=== PATIENT | female | born 1965 | race American Indian/Alaskan Native ===

== ENCOUNTER 2017-03-17 10:17 | Emergency (ER) | payer SELFPAY ==
--- NOTE | 2017-03-17 10:46 | Emergency Department Report ---
Chief Complaint: Neuro Symptoms/Deficit Stated Complaint: LT SIDE FACIAL NUMBNESS /RAPID HEART BEAT Time Seen by Provider: 03/17/17 10:42 - HPI History of Present Illness: PT c/o L sided facial numbness that started yesterday. PT states she has a hx of chf and dm. PT states she ate watermelon for breakfast - ROS Review of Systems: +polydipsia -cp + palpitations (since November) - Exam Physical Exam: PT is alert and appropriate no focal weakness noted normal HR MSE screening note: Focused history and physical exam performed. Due to findings the following was ordered: EKG, CT, labs ED Disposition for MSE Condition: Stable
[2017-03-17 11:17] LABS: Basophils % (Auto) 0.6 % (0.0-1.8); Eosinophils % (Auto) 1.4 % (0.0-4.3); Hematocrit 42.7 % (30.3-42.9); Hemoglobin 14.3 gm/dl (10.1-14.3); Mean Corpuscular HGB Conc 34 % (30-34); Mean Corpuscular Hemoglobin 32 pg (28-32); Mean Corpuscular Volume 94 fl (79-97); Platelet Count 231 K/mm3 (140-440); Red Blood Count 4.53 M/mm3 (3.65-5.03); Red Cell Distribution Width 13.3 % (13.2-15.2); White Blood Count 4.1 K/mm3 (4.5-11.0)
[2017-03-17 11:27] LABS: INR 0.93 (0.87-1.13)
[2017-03-17 11:29] LABS: Partial Thromboplastin Time 31.4 Sec. (24.2-36.6)
[2017-03-17 11:32] LABS: Bilirubin,Urine NEG (Negative); Blood,Urine NEG (Negative); Ketones,Urine NEG (Negative); Leukocyte Esterase,Urine NEG (Negative); Nitrite,Urine NEG (Negative); Protein,Urine <15 mg/dL mg/dL (Negative); Urobilinogen,Urine < 2.0 mg/dL (<2.0)
[2017-03-17 11:38] LABS: Alanine Aminotransferase 13 units/L (7-56); Albumin 3.8 g/dL (3.9-5); Albumin/Globulin Ratio 0.9 %; Alkaline Phosphatase 147 units/L (35-129); Anion Gap 18 mmol/L; BUN/Creatinine Ratio 23.33; Blood Urea Nitrogen 14 mg/dL (7-17); Calcium 9.3 mg/dL (8.4-10.2); Carbon Dioxide 22 mmol/L (22-30); Chloride 99.8 mmol/L (98-107); Creatine Kinase 67 units/L (30-135); Creatine Kinase MB < 1.0 ng/mL (0.0-4.0); Glucose 159 mg/dL (65-100); Potassium 4.2 mmol/L (3.6-5.0); Sodium 136 mmol/L (137-145); Total Protein 7.9 g/dL (6.3-8.2)
--- NOTE | 2017-03-17 12:37 | Cat Scan Report ---
CT HEAD WITHOUT CONTRAST: HISTORY: Left-sided facial numbness. Serial contiguous axial images were obtained through the cranium. Intravenous contrast material was not administered. The ventricles are normal in size and appearance. There is no mass effect or midline shift. No areas of abnormally increased or decreased attenuation are seen. No mass lesion is seen. The mastoid air cells and visualized portions of the sinuses are normal. IMPRESSION: Cranial CT scan within normal limits.
[2017-03-17 13:11] VITALS: BP 112/71
--- NOTE | 2017-03-17 15:59 | Emergency Department Report ---
ED Neuro Deficit HPI - General Chief Complaint: Hyperglycemia Stated Complaint: LT SIDE FACIAL NUMBNESS /RAPID HEART BEAT Time Seen by Provider: 03/17/17 10:42 Source: patient Mode of arrival: Ambulatory Limitations: No Limitations - History of Present Illness Initial Comments: Patient stated that she woke up this morning with numbness and pain to the right face. Denied any weakness numbness or tingling sensation in the other part of the body. No chest pain no headache. Patient stated that her symptoms completely resolved. She is out of her blood pressure medicine and diabetic medicine. Location: right face History of same: No - Related Data Home Medications: Previous Rx's Medication Instructions Recorded Last Taken Type Lisinopril [Zestril TAB] 5 mg PO QDAY #30 tablet 03/17/17 Unknown Rx glipiZIDE [glipiZIDE XL] 2.5 mg PO DAILY #30 tab.er.24 03/17/17 Unknown Rx Allergies/Adverse Reactions: Allergies Allergy/AdvReac Type Severity Reaction Status Date / Time acetaminophen [From Percocet] AdvReac Hives Verified 03/17/17 10:51 oxycodone HCl [From Percocet] AdvReac Hives Verified 03/17/17 10:51 ED Review of Systems ROS: Stated complaint: LT SIDE FACIAL NUMBNESS /RAPID HEART BEAT Other details as noted in HPI Comment: All other systems reviewed and negative Constitutional: denies: chills, fever Respiratory: denies: cough, shortness of breath Cardiovascular: denies: chest pain Gastrointestinal: denies: abdominal pain, nausea, vomiting, diarrhea Skin: denies: lesions, change in color Neurological: numbness (gone now). denies: headache, weakness ED Past Medical Hx - Past Medical History Previous Medical History?: Yes Hx Hypertension: Yes Hx Congestive Heart Failure: Yes Hx Diabetes: Yes - Surgical History Past Surgical History?: Yes Additional Surgical History: hysterectomy - Social History Smoking Status: Never Smoker Substance Use Type: Alcohol - Medications Home Medications: Home Medications Medication Instructions Recorded Confirmed Last Taken Type Lisinopril [Zestril TAB] 5 mg PO QDAY #30 tablet 03/17/17 Unknown Rx glipiZIDE [glipiZIDE XL] 2.5 mg PO DAILY #30 tab.er.24 03/17/17 Unknown Rx ED Neuro Physical Exam - General Limitations: No Limitations General appearance: alert Suspected Stroke: No - Head Head exam: Present: atraumatic - Eye Eye exam: Present: normal appearance - ENT ENT exam: Present: normal exam - Neck Neck exam: Present: normal inspection - Respiratory Respiratory exam: Present: normal lung sounds bilaterally. Absent: respiratory distress, wheezes, chest wall tenderness - Cardiovascular Cardiovascular Exam: Present: regular rate, normal rhythm, normal heart sounds - GI/Abdominal GI/Abdominal exam: Present: soft. Absent: tenderness, guarding, rebound, mass, pulsatile mass - Extremities Exam Extremities exam: Present: normal inspection - Back Exam Back exam: Present: normal inspection - Neurological Exam Neurological exam: Present: alert, oriented X3, CN II-XII intact - NIHSS Assessment Interval: Baseline 1a. Level of Consciousness: alert 1b. LOC Questions: answers correctly 1c. LOC Commands: performs tasks correctly 2. Best Gaze: normal 3. Visual: no visual loss 4. Facial Palsy: normal symmetrical movement 5b. Motor Arm Right: no drift 5a. Motor Arm Left: no drift 6a. Motor Leg Left: no drift 6b. Motor Leg Right: no drift 7. Limb Ataxia: absent 8. Sensory: normal 9. Best Language: no aphasia 10. Dysarthria: normal 11. Extinction/Inattention: no abnormality Total Score: 0 Stroke Severity: No Stroke Symptoms - Skin Skin exam: Present: warm, intact ED Course Vital Signs 03/17/17 03/17/17 03/17/17 10:42 12:56 13:00 Temperature 98.4 F Pulse Rate 74 92 H 87 Respiratory 18 23 17 Rate Blood Pressure 145/97 112/71 Blood Pressure [Right] O2 Sat by Pulse 96 98 94 Oximetry 03/17/17 03/17/17 13:13 13:16 Temperature 98.4 F Pulse Rate 87 Respiratory 18 18 Rate Blood Pressure Blood Pressure 112/71 [Right] O2 Sat by Pulse 100 100 Oximetry - Reevaluation(s) Reevaluation #1: 03/17/17 15:59 Patient remained asymptomatic in the ER. - Lab Data Result diagrams: 03/17/17 10:59 03/17/17 10:59 Lab Results 03/17/17 03/17/17 03/17/17 Range/Units 10:44 10:59 10:59 WBC 4.1 L (4.5-11.0) K/mm3 RBC 4.53 (3.65-5.03) M/mm3 Hgb 14.3 (10.1-14.3) gm/dl Hct 42.7 (30.3-42.9) % MCV 94 (79-97) fl MCH 32 (28-32) pg MCHC 34 (30-34) % RDW 13.3 (13.2-15.2) % Plt Count 231 (140-440) K/mm3 Lymph % (Auto) 38.5 H (13.4-35.0) % Braxton % (Auto) 11.1 H (0.0-7.3) % Eos % (Auto) 1.4 (0.0-4.3) % Baso % (Auto) 0.6 (0.0-1.8) % Lymph # 1.6 (1.2-5.4) K/mm3 Braxton # 0.5 (0.0-0.8) K/mm3 Eos # 0.1 (0.0-0.4) K/mm3 Baso # 0.0 (0.0-0.1) K/mm3 Seg Neutrophils % 48.4 (40.0-70.0) % Seg Neutrophils # 2.0 (1.8-7.7) K/mm3 PT 12.9 (12.2-14.9) Sec. INR 0.93 (0.87-1.13) APTT 31.4 (24.2-36.6) Sec. Sodium (137-145) mmol/L Potassium (3.6-5.0) mmol/L Chloride (98-107) mmol/L Carbon Dioxide (22-30) mmol/L Anion Gap mmol/L BUN (7-17) mg/dL Creatinine (0.7-1.2) mg/dL Estimated GFR ml/min BUN/Creatinine Ratio % Glucose (65-100) mg/dL POC Glucose 180 H (70-105) Calcium (8.4-10.2) mg/dL Total Bilirubin (0.1-1.2) mg/dL AST (5-40) units/L ALT (7-56) units/L Alkaline Phosphatase (35-129) units/L Total Creatine Kinase (30-135) units/L CK-MB (CK-2) (0.0-4.0) ng/mL CK-MB (CK-2) Rel Index (0-4) Troponin T (0.00-0.029) ng/mL Total Protein (6.3-8.2) g/dL Albumin (3.9-5) g/dL Albumin/Globulin Ratio % Urine Color (Yellow) Urine Turbidity (Clear) Urine pH (5.0-7.0) Ur Specific Peck (1.003-1.030) Urine Protein (Negative) mg/dL Urine Glucose (UA) (Negative) mg/dL Urine Ketones (Negative) mg/dL Urine Blood (Negative) Urine Nitrite (Negative) Urine Bilirubin (Negative) Urine Urobilinogen (<2.0) mg/dL Ur Leukocyte Esterase (Negative) Urine WBC (Auto) (0.0-6.0) /HPF Urine RBC (Auto) (0.0-6.0) /HPF U Epithel Cells (Auto) (0-13.0) /HPF 03/17/17 03/17/17 03/17/17 Range/Units 10:59 11:02 13:42 WBC (4.5-11.0) K/mm3 RBC (3.65-5.03) M/mm3 Hgb (10.1-14.3) gm/dl Hct (30.3-42.9) % MCV (79-97) fl MCH (28-32) pg MCHC (30-34) % RDW (13.2-15.2) % Plt Count (140-440) K/mm3 Lymph % (Auto) (13.4-35.0) % Braxton % (Auto) (0.0-7.3) % Eos % (Auto) (0.0-4.3) % Baso % (Auto) (0.0-1.8) % Lymph # (1.2-5.4) K/mm3 Braxton # (0.0-0.8) K/mm3 Eos # (0.0-0.4) K/mm3 Baso # (0.0-0.1) K/mm3 Seg Neutrophils % (40.0-70.0) % Seg Neutrophils # (1.8-7.7) K/mm3 PT (12.2-14.9) Sec. INR (0.87-1.13) APTT (24.2-36.6) Sec. Sodium 136 L (137-145) mmol/L Potassium 4.2 (3.6-5.0) mmol/L Chloride 99.8 (98-107) mmol/L Carbon Dioxide 22 (22-30) mmol/L Anion Gap 18 mmol/L BUN 14 (7-17) mg/dL Creatinine 0.6 L (0.7-1.2) mg/dL Estimated GFR > 60 ml/min BUN/Creatinine Ratio 23.33 % Glucose 159 H (65-100) mg/dL POC Glucose 286 H (70-105) Calcium 9.3 (8.4-10.2) mg/dL Total Bilirubin 0.40 (0.1-1.2) mg/dL AST 12 (5-40) units/L ALT 13 (7-56) units/L Alkaline Phosphatase 147 H (35-129) units/L Total Creatine Kinase 67 (30-135) units/L CK-MB (CK-2) < 1.0 (0.0-4.0) ng/mL CK-MB (CK-2) Rel Index 1.4 (0-4) Troponin T < 0.010 (0.00-0.029) ng/mL Total Protein 7.9 (6.3-8.2) g/dL Albumin 3.8 L (3.9-5) g/dL Albumin/Globulin Ratio 0.9 % Urine Color Straw (Yellow) Urine Turbidity Clear (Clear) Urine pH 8.0 H (5.0-7.0) Ur Specific Peck 1.011 (1.003-1.030) Urine Protein <15 mg/dl (Negative) mg/dL Urine Glucose (UA) Neg (Negative) mg/dL Urine Ketones Neg (Negative) mg/dL Urine Blood Neg (Negative) Urine Nitrite Neg (Negative) Urine Bilirubin Neg (Negative) Urine Urobilinogen < 2.0 (<2.0) mg/dL Ur Leukocyte Esterase Neg (Negative) Urine WBC (Auto) 1.0 (0.0-6.0) /HPF Urine RBC (Auto) 1.0 (0.0-6.0) /HPF U Epithel Cells (Auto) 5.0 (0-13.0) /HPF Critical care attestation.: If time is entered above; I have spent that time in minutes in the direct care of this critically ill patient, excluding procedure time. ED Disposition Clinical Impression: Numbness and tingling, Hyperglycemia due to type 2 diabetes mellitus Disposition: DC-01 TO HOME OR SELFCARE Is pt being admited?: No Condition: Stable Instructions: Diabetes Mellitus Type 2 in Adults (ED) Referrals: PRIMARY CARE,MD [Primary Care Provider] - 3-5 Days
== END 2017-03-17 16:23 | disposition home or self-care (01) ==
LOC: ED 10:17
DX: E11.65 Type 2 diabetes mellitus with hyperglycemia (principal); R20.0 Anesthesia of skin; I10 Essential (primary) hypertension; I50.9 Heart failure, unspecified; Z88.8 Allergy status to other drugs, medicaments and biological substances
CPT/HCPCS: 36415; 70450; 80053; 81001; 82550; 82553; 82962; 84484; 85025; 85610; 85730; 93005; 93010

== ENCOUNTER 2017-05-13 22:05 | Emergency (ER) | payer BC ==
--- NOTE | 2017-05-14 07:05 | XRay Report ---
FINAL REPORT EXAM: XR KNEE BILAT 1-2V HISTORY: knee swelling COMPARISONS: None. FINDINGS: AP and lateral views both knees Alignment is anatomic, joint spaces are preserved, and subchondral surfaces are smooth. No fracture or effusion. IMPRESSION: Unremarkable knee radiographs.
[2017-05-14 08:25] VITALS: BP 128/80
--- NOTE | 2017-05-14 08:28 | Emergency Department Report ---
ED Extremity Problem HPI - General Chief complaint: Extremity Injury, Lower Stated complaint: BOTH KNEE PAIN Source: patient Mode of arrival: Ambulatory Limitations: No Limitations - History of Present Illness Initial comments: 29 y/o F with a pmhx of DM, CHF, HTN, and asthma presents with bilateral knee pain and swelling for the past 1 year. Pt states that the pain increased more since yesterday as she states that she walked more than usual up and down stairs. 8/10 in severity. Pt states that she is is still able to bare weight and ROM she states is full. Pt admits to mild swelling and redness at the site. Pt states that she has been taking advil and lidiocaine cream with mild relief of the pain. Pt denies any known trauma to the knees. No reported fever , chills, chest pain, SOB, nausea, vomiting at this time. Pt has an allergy to percocet. -: Gradual (ongoing for the past 1 year, that has increased over the past day from extensive walking) Location: bilateral lower extremity -: Yes myalgia, No fever, No associated dyspnea, No associated chest pain Radiation: none Severity scale (0 -10): 8 Quality: burning, aching Consistency: constant Improves with: rest Worsens with: walking Associated Symptoms: myalgias. denies: chest pain, shortness of breath, fever - Related Data Previous Rx's Medication Instructions Recorded Last Taken Type Lisinopril [Zestril TAB] 5 mg PO QDAY #30 tablet 03/17/17 Unknown Rx glipiZIDE [glipiZIDE XL] 2.5 mg PO DAILY #30 tab.er.24 03/17/17 Unknown Rx Ibuprofen [Motrin 400 MG tab] 400 mg PO Q8H PRN #15 tablet 05/14/17 Unknown Rx Allergies Allergy/AdvReac Type Severity Reaction Status Date / Time acetaminophen [From Percocet] AdvReac Hives Verified 05/13/17 22:08 oxycodone HCl [From Percocet] AdvReac Hives Verified 05/13/17 22:08 ED Review of Systems ROS: Stated complaint: BOTH KNEE PAIN Other details as noted in HPI Constitutional: denies: chills, fever Eyes: denies: eye pain, eye discharge, vision change ENT: denies: ear pain, throat pain Respiratory: denies: cough, shortness of breath, wheezing Cardiovascular: denies: chest pain, palpitations Musculoskeletal: joint swelling, myalgia, other (redness, swelling, and pain of b/l LE) Skin: other (redness) Neurological: denies: headache, weakness, paresthesias Psychiatric: denies: anxiety, depression ED Past Medical Hx - Past Medical History Hx Hypertension: Yes Hx Congestive Heart Failure: Yes Hx Diabetes: Yes - Surgical History Additional Surgical History: hysterectomy - Social History Smoking Status: Never Smoker Substance Use Type: None - Medications Home Medications: Home Medications Medication Instructions Recorded Confirmed Last Taken Type Lisinopril [Zestril TAB] 5 mg PO QDAY #30 tablet 03/17/17 Unknown Rx glipiZIDE [glipiZIDE XL] 2.5 mg PO DAILY #30 tab.er.24 03/17/17 Unknown Rx Ibuprofen [Motrin 400 MG tab] 400 mg PO Q8H PRN #15 tablet 05/14/17 Unknown Rx ED Physical Exam - General Limitations: No Limitations General appearance: alert, in no apparent distress - Head Head exam: Present: atraumatic, normocephalic - Eye Eye exam: Present: normal appearance, PERRL, EOMI - ENT ENT exam: Present: mucous membranes moist - Neck Neck exam: Present: normal inspection - Respiratory Respiratory exam: Present: normal lung sounds bilaterally. Absent: respiratory distress - Cardiovascular Cardiovascular Exam: Present: regular rate, normal rhythm. Absent: systolic murmur, diastolic murmur, rubs, gallop - Extremities Exam Extremities exam: Present: full ROM, tenderness (noted just superior to the patella), joint swelling (pt is able to bear weight and ROM of the joint is full ), other - Expanded Lower Extremity Exam Left Knee exam: Present: full ROM, tenderness (noted just superior to the patella), erythema, full knee extension. Absent: deformity, effusion Lower Leg exam: Present: normal inspection, full ROM Ankle exam: Present: normal inspection, full ROM Foot/Toe exam: Present: normal inspection, full ROM Neuro vascular tendon exam: Present: no vascular compromise. Absent: foot drop Gait: Positive: observed and normal Right Hip exam: Present: normal inspection, full ROM Upper Leg exam: Present: normal inspection, full ROM Knee exam: Present: tenderness (not at the superior aspect of the patella), swelling, erythema, full knee extension. Absent: deformity, effusion Lower Leg exam: Present: normal inspection, full ROM Ankle exam: Present: normal inspection, full ROM Foot/Toe exam: Present: normal inspection, full ROM Neuro vascular tendon exam: Present: no vascular compromise Gait: Positive: observed and normal - Back Exam Back exam: Present: normal inspection - Neurological Exam Neurological exam: Present: alert, oriented X3, normal gait - Psychiatric Psychiatric exam: Present: normal affect, normal mood - Skin Skin exam: Present: other (mild warmth noted at the site no redness) ED Course Vital Signs 05/13/17 05/14/17 05/14/17 22:07 02:35 08:23 Temperature 98.1 F 98.0 F Pulse Rate 112 H 92 H 92 H Respiratory 20 20 18 Rate Blood Pressure 135/78 127/87 Blood Pressure 128/80 [Right] O2 Sat by Pulse 96 98 99 Oximetry ED Medical Decision Making - Radiology Data Radiology results: image reviewed Xray of bilateral knees was unremarkable with no evidence of fracture or effusion. - Medical Decision Making I Spoke with Dr. Lopes regarding this case. Pt has had on and off bilateral knee pain for the past 1 year. She states that yesterday she did more walking then usual and aggrevated both of her knees. Pt was able to bare weight on examination-- no limpingor changes in gait noted, ROM was full, and the patient' s bilateral knee xray was unremarkable. I have provided pt with Ibuprofen 400 mg every 8 hours and recommended Glucogan chondriton. I have provided pt with orthopedic and PCP referrals. She also is requesting referrals to Cardio and Pulm at this time as she states she is looking for new specialists in the area at this time. Pt was in such a hurry to be discharged as she stated that she needed to make an interview, therefore, no pain medications were given in the ED. Pt was discharged in stable condition, vitals were stable, pt was alert and oriented, and the patient ambulated on her own at discharge. Critical care attestation.: If time is entered above; I have spent that time in minutes in the direct care of this critically ill patient, excluding procedure time. ED Disposition Clinical Impression: Knee pain, chronic Qualifiers: Laterality: bilateral Qualified Code(s): M25.561 - Pain in right knee Disposition: - TO HOME OR SELFCARE Is pt being admited?: No Does the pt Need Aspirin: No Condition: Stable Instructions: Ibuprofen (By mouth), Knee Pain (ED) Additional Instructions: Please purchase glucosamine chondroitin over the counter and take in addition to the ibuprofen 400 mg. Please stay off of your knees for the next 2-3 days. Elevated and ice the area. Please follow-up with PCP within 3-5 days and orthopedics in the next few days. Return to the ER immediately with any continued or worsening symptoms such as: fever, chills, increased redness and warmth. Prescriptions: Ibuprofen [Motrin 400 MG tab] 400 mg PO Q8H PRN #15 tablet PRN Reason: pain Referrals: [facility] [Outside] - 3-5 Days PIERRE ROJAS MD [Staff Physician] - 3-5 Days TIFFANIE GROSS MD [Staff Physician] - 3-5 Days [facility], [Primary Care Provider] - 3-5 Days SIGRID PERALTA MD [Staff Physician] - 3-5 Days Forms: Work/School Release Form(ED)
== END 2017-05-14 08:34 | disposition home or self-care (01) ==
LOC: ED 22:05
DX: M25.561 Pain in right knee (principal); M25.562 Pain in left knee; I10 Essential (primary) hypertension; I50.9 Heart failure, unspecified; E11.9 Type 2 diabetes mellitus without complications; Z88.8 Allergy status to other drugs, medicaments and biological substances; Z88.6 Allergy status to analgesic agent
CPT/HCPCS: 99283

== ENCOUNTER 2017-06-27 04:08 | Emergency (ER) | payer SELFPAY ==
[2017-06-27 04:21] VITALS: BP 137/89
[2017-06-27] MEDS ORDERED: DECADRON IM ONE (09:02)
--- NOTE | 2017-06-27 09:03 | Emergency Department Report ---
Minor Respiratory - HPI Chief Complaint: Earache Stated Complaint: EARACHE Time Seen by Provider: 06/27/17 08:50 Duration: Today Pain Location: Ear Severity: moderate Minor Respiratory: Yes Rhinorrhea, Yes Able to Tolerate Fluids, Yes Ear Pain, Yes Cough, Yes Sick Contacts, No Sore Throat, No Hemoptysis, No Chest Pain, No Shortness of Breath, No Fever Other History: Pt reports sinus congestion, sinus pain x 1 week. No fever. This AM had R ear pain. Hx DM, glc well controlled. ED Review of Systems ROS: Stated complaint: EARACHE Other details as noted in HPI Comment: All other systems reviewed and negative Constitutional: denies: chills, fever Eyes: denies: eye pain, eye discharge, vision change ENT: ear pain, congestion. denies: throat pain Respiratory: cough. denies: shortness of breath, wheezing Cardiovascular: denies: chest pain, palpitations Endocrine: no symptoms reported Gastrointestinal: denies: abdominal pain, nausea, diarrhea Genitourinary: denies: urgency, dysuria, discharge Musculoskeletal: denies: back pain, joint swelling, arthralgia Skin: denies: rash, lesions Neurological: denies: headache, weakness, paresthesias Psychiatric: denies: anxiety, depression Hematological/Lymphatic: denies: easy bleeding, easy bruising ED Past Medical Hx - Past Medical History Previous Medical History?: Yes Hx Hypertension: Yes Hx Congestive Heart Failure: Yes Hx Diabetes: Yes - Surgical History Past Surgical History?: Yes Additional Surgical History: hysterectomy - Social History Smoking Status: Never Smoker Substance Use Type: None - Medications Home Medications: Home Medications Medication Instructions Recorded Confirmed Last Taken Type Lisinopril [Zestril TAB] 5 mg PO QDAY #30 tablet 03/17/17 Unknown Rx glipiZIDE [glipiZIDE XL] 2.5 mg PO DAILY #30 tab.er.24 03/17/17 Unknown Rx Ibuprofen [Motrin 400 MG tab] 400 mg PO Q8H PRN #15 tablet 05/14/17 Unknown Rx Amoxicillin/Potassium Clav 1 each PO BID #20 tablet 06/27/17 Unknown Rx [Augmentin 875-125 Tablet] Fluticasone [Flonase] 2 spray NS QDAY #1 bottle 06/27/17 Unknown Rx Minor Respiratory Exam - Exam General: Vital signs noted. No distress. Alert and acting appropriately. HEENT: Yes Moist Mucous Membranes, Yes Frontal Tenderness, Yes Maxillary Tenderness, No Pharyngeal Erythema, No Pharyngeal Exudates, No Rhinorrhea, No Conjuctival Injection Ear: Right TM Bulge, Right TM Erythema, Neither EAC Pain, Neither EAC Discharge Neck: Yes Supple, No Adenopathy Lungs: Yes Good Air Exchange, Yes Cough (slight), No Wheezes, No Ronchi, No Stridor, No Labored Respirations, No Retractions, No Use of Accessory Muscles, No Other Abnormal Lung Sounds Heart: Yes Regular, No Murmur Abdomen: Yes Normal Bowel Sounds, No Tenderness, No Peritoneal Signs Skin: No Rash, No Edema Neurologic: Alert and oriented, no deficits. Musculoskeletal: Unremarkable. ED Course Vital Signs 06/27/17 04:18 Temperature 99.4 F Pulse Rate 107 H Blood Pressure 137/89 O2 Sat by Pulse 99 Oximetry - Reevaluation(s) Reevaluation #1: 06/27/17 09:00 NAD, stable for d/c. ED Medical Decision Making - Medical Decision Making Pt with R otitis media and acute sinusitis >7 day duration. Will give IM Decadron x 1 and abx. Follow with PCP. Monitor glc. - Differential Diagnosis sinusitis, otitis media, URI Critical care attestation.: If time is entered above; I have spent that time in minutes in the direct care of this critically ill patient, excluding procedure time. ED Disposition Clinical Impression: Acute sinusitis Qualifiers: Sinusitis location: unspecified location Recurrence: not specified as recurrent Qualified Code(s): J01.90 - Acute sinusitis, unspecified Suppurative otitis media Qualifiers: Chronicity: acute Laterality: right Recurrence: not specified as recurrent Spontaneous tympanic membrane rupture: without spontaneous rupture Qualified Code(s): H66.001 - Acute suppurative otitis media without spontaneous rupture of ear drum, right ear Disposition: - TO HOME OR SELFCARE Is pt being admited?: No Condition: Good Instructions: Otitis Media (ED), Sinusitis (ED) Prescriptions: Amoxicillin/Potassium Clav [Augmentin 875-125 Tablet] 1 each PO BID #20 tablet Fluticasone [Flonase] 2 spray NS QDAY #1 bottle Referrals: PRIMARY CARE, [Primary Care Provider] - 3-5 Days Time of Disposition: 09:03
[2017-06-27] MEDS ORDERED: MOTRIN PO ONE (09:05)
== END 2017-06-27 10:03 | disposition home or self-care (01) ==
LOC: ED 04:08
DX: J01.90 Acute sinusitis, unspecified (principal); H66.41 Suppurative otitis media, unspecified, right ear; I10 Essential (primary) hypertension; I50.9 Heart failure, unspecified; E11.9 Type 2 diabetes mellitus without complications; Z90.710 Acquired absence of both cervix and uterus
CPT/HCPCS: 96372; 99282; J1100

== ENCOUNTER 2017-12-07 10:06 | Emergency (ER) | payer OTHER ==
[2017-12-07 10:51] VITALS: BP 166/103
[2017-12-07] MEDS ORDERED: MOTRIN PO ONE (13:39)
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
--- NOTE | 2017-12-07 14:11 | XRay Report ---
LEFT HAND, 3 views: History: Injury, pain The bony architecture is intact. Bony alignment is normal. No soft tissue abnormalities are seen. The joint spaces appear preserved. IMPRESSION: Left hand within normal limits.
--- NOTE | 2017-12-07 14:34 | Cat Scan Report ---
FINAL REPORT PROCEDURE: CT HEAD/BRAIN WO CON TECHNIQUE: Computerized tomography of the head was performed without contrast material. HISTORY: closed head injury. Pain. COMPARISON: Prior CT scan of the brain 03/17/2017 FINDINGS: Brain: Brain density appears normal. No evidence of intracranial hemorrhage. No parenchymal hemorrhage, mass lesions or mass effect are seen. No abnormal extraxial fluid collects or masses are seen. Ventricles: Ventricles are normal size and are midline. Bone Windows: No evidence of skull fracture. Paranasal sinuses: Clear Mastoid air cells: Clear IMPRESSION: Negative examination
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
--- NOTE | 2017-12-07 15:09 | Cat Scan Report ---
FINAL REPORT PROCEDURE: CT FACIAL BONES WO CON TECHNIQUE: Computerized tomography of the facial bones and soft tissues with axial and coronal sections performed from the cranial aspect of the frontal sinuses to the caudal portion of the mandible without contrast material. HISTORY: right facial swelling secondary to fall. Pain. COMPARISON: No prior studies are available for comparison. FINDINGS: There is subtle irregularity of the nasal bone just to the right of midline seen on image 83 series 2 axial image. Correlation with physical exam recommended to exclude a nondisplaced fracture. No other evidence of fracture. The orbits, zygomas and zygomatic arches as well as the mireles of the paranasal sinuses and mandible are intact. Nodular density is seen inferior anterior aspect left maxillary sinus measuring 1.7 centimeters suggesting a mucous retention cyst or possibly a polyp. Paranasal sinuses otherwise are clear. There is subcutaneous edema visualized lateral to the right zygoma. No radiopaque foreign bodies are identified. IMPRESSION: Subcutaneous edema visualize lateral to the right zygoma. Minimal cortical irregularity of the nasal bone as described. Recommend correlation with physical exam to exclude a nondisplaced fracture. No other evidence of facial fracture. Minimal paranasal sinus disease as described.
== END 2017-12-07 15:35 | disposition home or self-care (01) ==
LOC: ED 10:06
DX: M79.642 Pain in left hand (principal); E11.9 Type 2 diabetes mellitus without complications; I10 Essential (primary) hypertension; Z90.710 Acquired absence of both cervix and uterus; Z88.6 Allergy status to analgesic agent; W51.XXXA Accidental striking against or bumped into by another person, initial encounter; Y93.89 Activity, other specified; Y92.89 Other specified places as the place of occurrence of the external cause; Y99.8 Other external cause status
CPT/HCPCS: 70450; 70486; 99284

== ENCOUNTER 2018-02-07 22:21 | Emergency (ER) | payer SELFPAY ==
[2018-02-07] MEDS ORDERED: ASPIRIN PO ONE (22:31)
[2018-02-08 00:01] LABS: BUN/Creatinine Ratio 18; Blood Urea Nitrogen 14 mg/dL (7-17); Calcium 8.8 mg/dL (8.4-10.2); Hemolysis Index 18
[2018-02-08 00:23] LABS: Basophils % (Auto) 0.2 % (0.0-1.8); Eosinophils # (Auto) 0.1 K/mm3 (0.0-0.4); Eosinophils % (Auto) 1.3 % (0.0-4.3); Hematocrit 41.2 % (30.3-42.9); Hemoglobin 13.5 gm/dl (10.1-14.3); Lymphocytes # (Auto) 2.5 K/mm3 (1.2-5.4); Lymphocytes % (Auto) 43.7 % (13.4-35.0); Mean Corpuscular HGB Conc 33 % (30-34); Mean Corpuscular Hemoglobin 31 pg (28-32); Mean Corpuscular Volume 95 fl (79-97); Monocytes # (Auto) 0.5 K/mm3 (0.0-0.8); Monocytes % (Auto) 9.3 % (0.0-7.3); Platelet Count 245 K/mm3 (140-440); Red Blood Count 4.33 M/mm3 (3.65-5.03); Red Cell Distribution Width 13.5 % (13.2-15.2)
[2018-02-08] MEDS ORDERED: MOTRIN PO ONE (00:35)
--- NOTE | 2018-02-08 00:57 | Emergency Department Report ---
ED Chest Pain HPI - General Chief Complaint: Chest Pain Stated Complaint: CHEST PAIN Time Seen by Provider: 02/08/18 00:20 Source: patient Mode of arrival: Ambulatory Limitations: No Limitations - History of Present Illness Initial Comments: ms Downs is a 52 year-old woman who presents with left sided chest pain. Noticed it in [facility] this morning around 1030am. Left upper chest. Feels sharp. Hurts to cough. Hurts to push on her chest. has been coughign recently due to asthma. No fever. Not coughing anything up. Coughs mostly at night. No radiation of chest pain. No back pain. Not exertional. No orthopnea MD Complaint: chest pain Onset/Timin,030 (am) -: This morning Onset: during rest Pain Location: left chest Severity: mild Severity scale (0 -10): 5 Quality: sharp Consistency: intermittent, now resolved Improves With: nothing Worsens With: other (coughing) Other Symptoms: cough Treatments Prior to Arrival: none - Related Data Previous Rx's Medication Instructions Recorded Last Taken Type Lisinopril [Zestril TAB] 5 mg PO QDAY #30 tablet 03/17/17 Unknown Rx glipiZIDE [glipiZIDE XL] 2.5 mg PO DAILY #30 tab.er.24 03/17/17 Unknown Rx Ibuprofen [Motrin 400 MG tab] 400 mg PO Q8H PRN #15 tablet 05/14/17 Unknown Rx Amoxicillin/Potassium Clav 1 each PO BID #20 tablet 06/27/17 Unknown Rx [Augmentin 875-125 Tablet] Fluticasone [Flonase] 2 spray NS QDAY #1 bottle 06/27/17 Unknown Rx traMADol [Ultram] 50 mg PO Q6HR PRN #12 tablet 12/07/17 Unknown Rx Allergies Allergy/AdvReac Type Severity Reaction Status Date / Time acetaminophen [From Percocet] AdvReac Hives Verified 05/13/17 22:08 oxycodone HCl [From Percocet] AdvReac Hives Verified 05/13/17 22:08 Heart Score - HEART Score History: Slightly suspicious EKG: Normal Age: 45-65 Risk factors: 1-2 risk factors Troponin: < normal limit HEART Score: 2 - Critical Actions Critical Actions: 0-3 pts:0.9-1.7%risk of adverse cardiac event.Candidate for discharge ED Review of Systems ROS: Stated complaint: CHEST PAIN Other details as noted in HPI Comment: All other systems reviewed and negative ED Past Medical Hx - Past Medical History Previous Medical History?: Yes Hx Hypertension: Yes Hx Congestive Heart Failure: Yes Hx Diabetes: Yes - Surgical History Past Surgical History?: Yes Additional Surgical History: hysterectomy - Social History Smoking Status: Never Smoker Substance Use Type: None - Medications Home Medications: Home Medications Medication Instructions Recorded Confirmed Last Taken Type Lisinopril [Zestril TAB] 5 mg PO QDAY #30 tablet 03/17/17 Unknown Rx glipiZIDE [glipiZIDE XL] 2.5 mg PO DAILY #30 tab.er.24 03/17/17 Unknown Rx Ibuprofen [Motrin 400 MG tab] 400 mg PO Q8H PRN #15 tablet 05/14/17 Unknown Rx Amoxicillin/Potassium Clav 1 each PO BID #20 tablet 06/27/17 Unknown Rx [Augmentin 875-125 Tablet] Fluticasone [Flonase] 2 spray NS QDAY #1 bottle 06/27/17 Unknown Rx traMADol [Ultram] 50 mg PO Q6HR PRN #12 tablet 12/07/17 Unknown Rx ED Physical Exam - General Limitations: No Limitations General appearance: alert, in no apparent distress - Head Head exam: Present: atraumatic, normocephalic - Eye Eye exam: Present: normal appearance, PERRL, EOMI - ENT ENT exam: Present: normal exam, mucous membranes moist - Neck Neck exam: Present: normal inspection. Absent: tenderness - Respiratory Respiratory exam: Present: normal lung sounds bilaterally, chest wall tenderness , other (TTP over 2/3rd ribs left side. no bruising, no swelling, no rash). Absent: respiratory distress, wheezes, rales - Cardiovascular Cardiovascular Exam: Present: regular rate, normal rhythm. Absent: systolic murmur, diastolic murmur, rubs, gallop - GI/Abdominal GI/Abdominal exam: Present: soft. Absent: distended, tenderness - Extremities Exam Extremities exam: Present: normal inspection. Absent: tenderness - Back Exam Back exam: Present: normal inspection - Neurological Exam Neurological exam: Present: alert, oriented X3 - Psychiatric Psychiatric exam: Present: normal affect, normal mood - Skin Skin exam: Present: warm, dry, intact, normal color. Absent: rash ED Course Vital Signs 02/07/18 02/07/18 02/08/18 22:27 23:30 00:35 Temperature 98.1 F 98.1 F Pulse Rate 73 79 Respiratory 16 20 20 Rate Blood Pressure 163/85 Blood Pressure 143/86 [Left] O2 Sat by Pulse 98 98 98 Oximetry 02/08/18 02/08/18 01:12 02:02 Temperature Pulse Rate 63 Respiratory 20 20 Rate Blood Pressure Blood Pressure 154/89 [Left] O2 Sat by Pulse 96 Oximetry ED Medical Decision Making - Lab Data Result diagrams: 02/07/18 22:40 02/07/18 22:40 Lab Results 02/07/18 02/07/18 02/07/18 Range/Units 22:40 22:40 22:40 WBC 5.8 (4.5-11.0) K/mm3 RBC 4.33 (3.65-5.03) M/mm3 Hgb 13.5 (10.1-14.3) gm/dl Hct 41.2 (30.3-42.9) % MCV 95 (79-97) fl MCH 31 (28-32) pg MCHC 33 (30-34) % RDW 13.5 (13.2-15.2) % Plt Count 245 (140-440) K/mm3 Lymph % (Auto) 43.7 H (13.4-35.0) % Terry % (Auto) 9.3 H (0.0-7.3) % Eos % (Auto) 1.3 (0.0-4.3) % Baso % (Auto) 0.2 (0.0-1.8) % Lymph # 2.5 (1.2-5.4) K/mm3 Terry # 0.5 (0.0-0.8) K/mm3 Eos # 0.1 (0.0-0.4) K/mm3 Baso # 0.0 (0.0-0.1) K/mm3 Seg Neutrophils % 45.5 (40.0-70.0) % Seg Neutrophils # 2.6 (1.8-7.7) K/mm3 Sodium 143 (137-145) mmol/L Potassium 4.0 (3.6-5.0) mmol/L Chloride 101.8 (98-107) mmol/L Carbon Dioxide 29 (22-30) mmol/L Anion Gap 16 mmol/L BUN 14 (7-17) mg/dL Creatinine 0.8 (0.7-1.2) mg/dL Estimated GFR > 60 ml/min BUN/Creatinine Ratio 18 % Glucose 227 H (65-100) mg/dL Calcium 8.8 (8.4-10.2) mg/dL Troponin T < 0.010 (0.00-0.029) ng/mL NT-Pro-B Natriuret Pep 194.4 (0-900) pg/mL - EKG Data 2235: HR 86, sinus, normal axis, intervals wnl, no ST changes concerning for acute ischemia - Radiology Data Radiology results: report reviewed IMPRESSION: Normal examination. - Medical Decision Making ms downs is a 52 year-old woman with left chest wall pain. hx of CHF, asthma. Pain with coughing, touching her left upper chest. VSS on room air, no peripheral edema, soft abdomen, left chest wall tenderness without bruising, swelling, crepitus. Suspect this is MSK pain vs PNA vs PTX vs ACS. CXR clear. Trop neg. EKG non-ischemic, WBC normal. Lungs remain clear to exam. Some improvement in pain with NSAIDs. more than 6 hours since onset of pain, able to clear with one troponin. Suspect MSK pain. Given care instructions, return precautions and plan to establish PCP in order to provide care for her multiple chronic medical problems. Critical care attestation.: If time is entered above; I have spent that time in minutes in the direct care of this critically ill patient, excluding procedure time. ED Disposition Clinical Impression: Chest wall pain Disposition: DC-01 TO HOME OR SELFCARE Is pt being admited?: No Does the pt Need Aspirin: No Condition: Stable Instructions: Chest Pain (ED), Costochondritis (ED) Referrals: PRIMARY CARE, [Primary Care Provider] - 3-5 Days Forms: Work/School Release Form(ED)
--- NOTE | 2018-02-08 01:58 | XRay Report ---
FINAL REPORT PROCEDURE: XR CHEST ROUTINE 2V TECHNIQUE: PA and lateral chest radiographs were obtained. CPT 81156 HISTORY: chest pain COMPARISON: No prior studies are available for comparison. FINDINGS: Heart: Normal. Mediastinum/Vessels: Normal. Lungs/Pleural space: Normal. Bony thorax: No acute osseous abnormality. Other: IMPRESSION: Normal examination.
[2018-02-08 02:03] VITALS: BP 154/89
== END 2018-02-08 02:35 | disposition home or self-care (01) ==
LOC: ED 22:21
DX: R07.89 Other chest pain (principal); R05 Cough; I11.0 Hypertensive heart disease with heart failure; I50.9 Heart failure, unspecified; E11.9 Type 2 diabetes mellitus without complications; Z90.710 Acquired absence of both cervix and uterus; Z79.84 Long term (current) use of oral hypoglycemic drugs; Z88.6 Allergy status to analgesic agent; Z88.5 Allergy status to narcotic agent
CPT/HCPCS: 36415; 71046; 80048; 83880; 84484; 85025; 93005; 93010

== ENCOUNTER 2020-04-23 17:30 | Emergency (ER) | payer OTHER ==
--- NOTE | 2020-04-23 17:32 | Emergency Department Report ---
Blank Doc - Documentation Documentation: 55-year-old female that presents with generlzied weakness, fatigue, and body a ches. Stated blood sugar is above 600s at home. This initial assessment/diagnostic orders/clinical plan/treatment(s) is/are subject to change based on patient's health status, clinical progression and re- assessment by fellow clinical providers in the ED. Further treatment and workup at subsequent clinical providers discretion. Patient/guardians urged not to elope from the ED as their condition may be serious if not clinically assessed and managed. Initial orders include: 1- Patient sent to MAIN ED for further evaluation and treatment 2- labs
[2020-04-23 18:06] LABS: Basophils # (Auto) 0.1 K/mm3 (0.0-0.1); Eosinophils % (Auto) 0.7 % (0.0-4.3); Hematocrit 42.4 % (30.3-42.9); Hemoglobin 14.3 gm/dl (10.1-14.3); Lymphocytes % (Auto) 32.4 % (13.4-35.0); Mean Corpuscular HGB Conc 34 % (30-34); Mean Corpuscular Volume 95 fl (79-97); Monocytes # (Auto) 0.6 K/mm3 (0.0-0.8); Monocytes % (Auto) 9.3 % (0.0-7.3); Platelet Count 263 K/mm3 (140-440); Red Blood Count 4.46 M/mm3 (3.65-5.03); Red Cell Distribution Width 12.6 % (13.2-15.2)
--- NOTE | 2020-04-23 18:19 | Emergency Department Report ---
ED General Adult HPI - General Chief complaint: Weakness Stated complaint: HIGH BLOOD SUGAR Time Seen by Provider: 04/23/20 17:31 Source: patient Mode of arrival: Wheelchair Limitations: No Limitations - History of Present Illness Initial comments: Patient is 55-year-old female with history of borderline diabetes and hypertension, not taking any medication, only diet and exercise. Patient presented to the ER complaining of generalized weakness for the last few days. Patient also describes thirsty and increased urinary frequency. Patient denied any fever or chills. No chest pain, shortness of breath, abdominal pain, diarrhea, headache focal weakness numbness or tingling sensation. - Related Data Previous Rx's Medication Instructions Recorded Last Taken Type glipiZIDE [glipiZIDE XL] 2.5 mg PO DAILY #30 tab.er.24 03/17/17 Unknown Rx lisinopriL [Zestril TAB] 5 mg PO QDAY #30 tablet 03/17/17 Unknown Rx Ibuprofen [Motrin 400 MG tab] 400 mg PO Q8H PRN #15 tablet 05/14/17 Unknown Rx Amoxicillin/Potassium Clav 1 each PO BID #20 tablet 06/27/17 Unknown Rx [Augmentin 875-125 Tablet] Fluticasone [Flonase] 2 spray NS QDAY #1 bottle 06/27/17 Unknown Rx traMADoL [Ultram] 50 mg PO Q6HR PRN #12 tablet 12/07/17 Unknown Rx Allergies Allergy/AdvReac Type Severity Reaction Status Date / Time acetaminophen [From Percocet] AdvReac Hives Verified 05/13/17 22:08 oxycodone HCl [From Percocet] AdvReac Hives Verified 05/13/17 22:08 ED Review of Systems ROS: Stated complaint: HIGH BLOOD SUGAR Other details as noted in HPI Comment: All other systems reviewed and negative Constitutional: denies: chills, fever Respiratory: denies: cough, shortness of breath, SOB with exertion, SOB at rest, wheezing Cardiovascular: denies: chest pain, palpitations, dyspnea on exertion Gastrointestinal: denies: abdominal pain, nausea, vomiting Genitourinary: frequency Musculoskeletal: denies: back pain Neurological: weakness. denies: headache, numbness, paresthesias, confusion, abnormal gait ED Past Medical Hx - Past Medical History Previous Medical History?: Yes Hx Hypertension: Yes Hx Congestive Heart Failure: Yes Hx Diabetes: Yes - Surgical History Past Surgical History?: Yes Additional Surgical History: hysterectomy - Social History Smoking Status: Never Smoker Substance Use Type: None - Medications Home Medications: Home Medications Medication Instructions Recorded Confirmed Last Taken Type glipiZIDE [glipiZIDE XL] 2.5 mg PO DAILY #30 tab.er.24 03/17/17 Unknown Rx lisinopriL [Zestril TAB] 5 mg PO QDAY #30 tablet 03/17/17 Unknown Rx Ibuprofen [Motrin 400 MG tab] 400 mg PO Q8H PRN #15 tablet 05/14/17 Unknown Rx Amoxicillin/Potassium Clav 1 each PO BID #20 tablet 06/27/17 Unknown Rx [Augmentin 875-125 Tablet] Fluticasone [Flonase] 2 spray NS QDAY #1 bottle 06/27/17 Unknown Rx traMADoL [Ultram] 50 mg PO Q6HR PRN #12 tablet 12/07/17 Unknown Rx ED Physical Exam - General Limitations: No Limitations General appearance: alert, in no apparent distress - Head Head exam: Present: atraumatic, normocephalic, normal inspection - Eye Eye exam: Present: normal appearance - ENT ENT exam: Present: mucous membranes dry - Neck Neck exam: Present: normal inspection, full ROM. Absent: tenderness, meningismus - Respiratory Respiratory exam: Present: normal lung sounds bilaterally - Cardiovascular Cardiovascular Exam: Present: regular rate, normal rhythm, normal heart sounds - GI/Abdominal GI/Abdominal exam: Present: soft, normal bowel sounds. Absent: distended, tenderness, guarding, rebound, rigid, organomegaly, mass, bruit, pulsatile mass, hernia - Extremities Exam Extremities exam: Present: normal inspection, full ROM, normal capillary refill. Absent: pedal edema, calf tenderness - Back Exam Back exam: Present: normal inspection, full ROM. Absent: CVA tenderness (R), CVA tenderness (L) - Neurological Exam Neurological exam: Present: alert, oriented X3, CN II-XII intact, normal gait, reflexes normal. Absent: motor sensory deficit - Psychiatric Psychiatric exam: Present: normal mood - Skin Skin exam: Present: warm, intact, normal color ED Course Vital Signs 04/23/20 04/23/20 04/23/20 17:36 19:01 20:22 Temperature 98.2 F 98.2 F 97.9 F Pulse Rate 107 H 89 92 H Respiratory 16 15 17 Rate Blood Pressure 117/82 133/89 138/97 [Right] O2 Sat by Pulse 96 96 98 Oximetry ED Medical Decision Making - Lab Data Result diagrams: 04/23/20 17:38 04/23/20 17:38 - EKG Data -: EKG Interpreted by Me EKG shows normal: sinus rhythm Rate: normal - EKG Data Interpretation: no acute changes - Radiology Data Radiology results: report reviewed - Medical Decision Making Patient is 55-year-old female with history of borderline diabetes and hypertension, not taking any medication, only diet and exercise. Patient presented to the ER complaining of generalized weakness for the last few days. Patient also describes thirsty and increased urinary frequency. Patient denied any fever or chills. No chest pain, shortness of breath, abdominal pain, diarrhea, headache focal weakness numbness or tingling sensation. Patient remained asymptomatic in the emergency room. Labs reviewed and is unremarkable except for slightly elevated blood glucose. No evidence of DKA I will start patient on metformin 500 mg twice a day and advised to follow-up with her primary doctor in the next 2 to 3 days and to return to the ER if she develop any new symptoms Critical care attestation.: If time is entered above; I have spent that time in minutes in the direct care of this critically ill patient, excluding procedure time. ED Disposition Clinical Impression: Generalized weakness, Acute hyperglycemia Disposition: DC-01 TO HOME OR SELFCARE Is pt being admited?: No Condition: Stable Instructions: Diabetes Mellitus Type 2 in Adults (ED) Referrals: [facility] [Other] - 3-5 Days
[2020-04-23 18:23] LABS: Alanine Aminotransferase 11 units/L (7-56); Albumin 3.9 g/dL (3.9-5); BUN/Creatinine Ratio 19; Blood Urea Nitrogen 19 mg/dL (7-17); Calcium 9.1 mg/dL (8.4-10.2); Hemolysis Index 33
[2020-04-23 21:54] LABS: Bacteria,Urine 1+ /HPF (Negative); Bilirubin,Urine NEG (Negative); Blood,Urine NEG (Negative); Color,Urine Yellow (Yellow); Protein,Urine <15 mg/dL mg/dL (Negative); Urobilinogen,Urine < 2.0 mg/dL (<2.0)
[2020-04-23 23:15] VITALS: BP 105/57
== END 2020-04-23 23:33 | disposition home or self-care (01) ==
LOC: ED 17:30
DX: E11.65 Type 2 diabetes mellitus with hyperglycemia (principal); R53.1 Weakness; I11.0 Hypertensive heart disease with heart failure; I50.9 Heart failure, unspecified; Z79.899 Other long term (current) drug therapy; Z90.710 Acquired absence of both cervix and uterus; Z88.6 Allergy status to analgesic agent; Z88.1 Allergy status to other antibiotic agents
CPT/HCPCS: 36415; 80053; 81001; 82805; 82962; 84484; 85025; 93005; 99283